=== PATIENT | male | born 1985 | race Caucasian/White ===

== ENCOUNTER 2022-04-12 16:46 | Inpatient (IN) ==
[2022-04-12] MEDS ORDERED: Lactated Ringers 1000 ml BAG 1,000 ML IV ONE ×3 (16:47→18:22)
[2022-04-12] MEDS ORDERED: Metoclopramide 5 MG/ML VIAL (10 mg) IV ONE (16:48)
[2022-04-12 17:34] LABS: Venous Bicarbonate HCO3 15.1 mmol/L (24-28)
[2022-04-12 17:37] LABS: Hematocrit 45 % (42-52); Hemoglobin 14.8 g/dL (14.0-18.0); Mean Corpuscular HGB Conc 33 g/dL (31-36); Mean Corpuscular Hemoglobin 30 pg (27-31); Mean Corpuscular Volume 92 fL (80-94); Mean Platelet Volume 8.2 fL (7.4-10.4); Platelet Count 551 10^3/uL (150-450); Red Blood Count 4.94 10^6 /uL (4.18-5.48); Red Cell Distribution Width 13 % (10-15); White Blood Count 30.3 10^3/uL (3.5-10.8)
[2022-04-12 18:05] LABS: Albumin 4.6 g/dL (3.2-5.2); Albumin/Globulin Ratio 1.5 (1-3); Calcium 9.5 mg/dL (8.6-10.3); Globulin 3.1 g/dL (2-4); Total Bilirubin 0.7 mg/dL (0.2-1.0); Total Protein 7.7 g/dL (6.4-8.9); eGFR CKD-EPI 44.9 (>60)
[2022-04-12] MEDS ORDERED: Insulin Infusion 100unit/100mL 100 UNIT/100 ML BAG IV ONE (18:11)
[2022-04-12] MEDS ORDERED: Dextrose 50% Syringe 50 ml 25 GM/50 ML SYRINGE IV PUSH PRN ×2 (18:11→20:22)
[2022-04-12 18:30] LABS: ABS Basophils 0.1 10^3/ul (0-0.2); ABS Lymphocytes 2.7 10^3/ul (1.0-4.8); ABS Monocytes 1.2 10^3/ul (0-0.8); ABS Neutrophils 26.3 10^3/ul (1.5-7.7)
[2022-04-12] MEDS ORDERED: Droperidol 5 MG/2 ML 2 ML VIAL IV ONE (19:22)
[2022-04-12] MEDS ORDERED: NORMOSOL-R pH 7.4 1000 mL BAG 1,000 ML IV ONE (20:02)
[2022-04-12] MEDS ORDERED: Insulin Infusion 100unit/100mL 100 UNIT/100 ML BAG IV SCH (21:00)
[2022-04-12 21:08] LABS: Urine Appearance Cloudy; Urine Bilirubin Negative (Negative); Urine Blood Negative (Negative); Urine Color Yellow; Urine Glucose 3+(>=500 mg/dL) (Negative); Urine Ketones 2+ (Negative); Urine Nitrite Negative (Negative); Urine Protein Negative (Negative); Urine Specific Gravity 1.015 (1.002-1.030); Urine Urobilinogen Negative (Negative)
[2022-04-12 21:13] LABS: Magnesium 1.9 mg/dL (1.9-2.7); Phosphorus 2.2 mg/dL (2.5-5.0); Potassium 3.9 mmol/L (3.5-5.0)
[2022-04-12 21:28] LABS: TSH Ultra Thyroid Stim Horm 1.14 mcIU/mL (0.34-5.60)
[2022-04-12] MEDS ORDERED: NORMOSOL-R pH 7.4 1000 mL BAG 1,000 ML IV SCH (22:00)
[2022-04-12] MEDS ORDERED: D5W 1/2 NS 1000 ml BAG 1,000 ML IV SCH (22:00)
[2022-04-12 22:07] LABS: High Sensitivity Troponin 1 Hr 22 pg/mL (<20)
[2022-04-13] MEDS: Ondansetron 4 mg VIAL 2 MG/ML 2 ml VIAL IV PRN ×3 (01:04→18:02)
[2022-04-13 01:16] LABS: Calcium 8.6 mg/dL (8.6-10.3); Magnesium 1.8 mg/dL (1.9-2.7); Phosphorus 2.4 mg/dL (2.5-5.0); Potassium 3.5 mmol/L (3.5-5.0); eGFR CKD-EPI 84.6 (>60)
[2022-04-13] MEDS ORDERED: Insulin Infusion 100unit/100mL 100 UNIT/100 ML BAG IV SCH ×2 (04:00→20:00)
[2022-04-13] MEDS ORDERED: Magnesium Sulfate 2 gm BAG 2 GM/50 ML BAG IVPB ONE ×2 (04:01→06:04)
[2022-04-13 04:42] LABS: Hematocrit 35 % (42-52); Hemoglobin 12.3 g/dL (14.0-18.0); Mean Corpuscular HGB Conc 35 g/dL (31-36); Mean Corpuscular Hemoglobin 30 pg (27-31); Mean Corpuscular Volume 86 fL (80-94); Platelet Count 450 10^3/uL (150-450); Red Blood Count 4.09 10^6 /uL (4.18-5.48); Red Cell Distribution Width 13 % (10-15); White Blood Count 24.7 10^3/uL (3.5-10.8)
[2022-04-13 04:45] LABS: ABS Basophils 0.1 10^3/ul (0-0.2); ABS Lymphocytes 2.6 10^3/ul (1.0-4.8); ABS Monocytes 2.3 10^3/ul (0-0.8); ABS Neutrophils 19.6 10^3/ul (1.5-7.7); ABS Nucleated RBC 0.1 10^3/ul; Eosinophil % 0.1 %; Lymphocyte % 10.7 %; Nucleated Red Blood Cells % 0.5
[2022-04-13] MEDS: KCL 20 MEQ/100 ML IVPREMIX 20 MEQ/100 ML BAG IV SCH ×2 (04:47→07:48)
[2022-04-13 04:58] LABS: HDL Cholesterol 30.4 mg/dL
[2022-04-13 04:59] LABS: Calcium 8.6 mg/dL (8.6-10.3); Magnesium 1.8 mg/dL (1.9-2.7); Phosphorus 2.8 mg/dL (2.5-5.0); Potassium 3.4 mmol/L (3.5-5.0); eGFR CKD-EPI 102.5 (>60)
[2022-04-13] MEDS ORDERED: Insulin GLARGINE 100 un/ml 10 ml VIAL SUBCUT SCH ×2 (06:30→22:00)
[2022-04-13] MEDS: Droperidol 5 MG/2 ML 2 ML VIAL IV PRN ×2 (06:35→19:25)
[2022-04-13] MEDS ORDERED: Magnesium Sulfate IV 1GM/100ML 1 GM/100 ML BAG IV ONE (07:20)
[2022-04-13] MEDS ORDERED: KCL 20 MEQ/100 ML IVPREMIX 20 MEQ/100 ML BAG IV SCH ×2 (08:00→09:00)
[2022-04-13 09:04] LABS: Calcium 8.3 mg/dL (8.6-10.3); Phosphorus 2.9 mg/dL (2.5-5.0); Potassium 3.8 mmol/L (3.5-5.0); eGFR CKD-EPI 115.5 (>60)
[2022-04-13] MEDS ORDERED: Insulin GLARGINE 100 un/ml 10 ml VIAL SUBCUT ONE (10:52)
[2022-04-13 13:53] LABS: Calcium 8.3 mg/dL (8.6-10.3); Magnesium 2.3 mg/dL (1.9-2.7); Phosphorus 2.1 mg/dL (2.5-5.0); Potassium 3.8 mmol/L (3.5-5.0); eGFR CKD-EPI 114.3 (>60)
[2022-04-13] MEDS: NORMOSOL-R pH 7.4 1000 mL BAG 1,000 ML IV SCH (14:27)
[2022-04-13 17:32] LABS: Magnesium 2.2 mg/dL (1.9-2.7); Phosphorus 2.4 mg/dL (2.5-5.0); Potassium 3.9 mmol/L (3.5-5.0); eGFR CKD-EPI 118.1 (>60)
[2022-04-13] MEDS ORDERED: Potassium Phosphate IV 15 MMOLE in NS 0.9% 250 ml 250 ML IVPB ONE (18:30)
[2022-04-13] MEDS ORDERED: D5W 1/2 NS 1000 ml BAG 1,000 ML IV SCH (19:00)
[2022-04-13 21:19] LABS: Calcium 8.2 mg/dL (8.6-10.3); Magnesium 2.1 mg/dL (1.9-2.7); Phosphorus 2.3 mg/dL (2.5-5.0); Potassium 3.8 mmol/L (3.5-5.0); eGFR CKD-EPI 117.2 (>60)
[2022-04-13] MEDS ORDERED: Dextrose 50% Syringe 50 ml 25 GM/50 ML SYRINGE IV PUSH PRN (23:25)
[2022-04-14] MEDS: NORMOSOL-R pH 7.4 1000 mL BAG 1,000 ML IV SCH ×2 (00:42→11:29)
[2022-04-14 05:19] LABS: ABS Basophils 0.1 10^3/ul (0-0.2); ABS Lymphocytes 2.2 10^3/ul (1.0-4.8); ABS Monocytes 1.3 10^3/ul (0-0.8); ABS Neutrophils 9.6 10^3/ul (1.5-7.7); Eosinophil % 0.1 %; Hematocrit 33 % (42-52); Hemoglobin 11.1 g/dL (14.0-18.0); Lymphocyte % 16.9 %; Mean Corpuscular HGB Conc 34 g/dL (31-36); Mean Corpuscular Hemoglobin 30 pg (27-31); Mean Corpuscular Volume 90 fL (80-94); Mean Platelet Volume 7.3 fL (7.4-10.4); Platelet Count 341 10^3/uL (150-450); Red Blood Count 3.64 10^6 /uL (4.18-5.48); Red Cell Distribution Width 14 % (10-15); White Blood Count 13.3 10^3/uL (3.5-10.8)
[2022-04-14] MEDS: Ondansetron 4 mg VIAL 2 MG/ML 2 ml VIAL IV PRN ×3 (05:40→21:02)
[2022-04-14 06:17] LABS: eGFR CKD-EPI 131.7 (>60)
[2022-04-14 06:18] LABS: Magnesium 1.9 mg/dL (1.9-2.7)
[2022-04-14] MEDS: Droperidol 5 MG/2 ML 2 ML VIAL IV PRN ×3 (06:55→23:08)
[2022-04-14 07:27] LABS: Calcium 8.4 mg/dL (8.6-10.3)
[2022-04-14] MEDS ORDERED: Dextrose 50% Syringe 50 ml 25 GM/50 ML SYRINGE IV PUSH PRN (07:34)
[2022-04-14 08:38] LABS: Phosphorus 2.7 mg/dL (2.5-5.0)
[2022-04-14] MEDS ORDERED: Insulin GLARGINE 100 un/ml 10 ml VIAL SUBCUT SCH (09:00)
[2022-04-14] MEDS ORDERED: Insulin Infusion 100unit/100mL 100 UNIT/100 ML BAG IV SCH ×2 (10:30→11:00)
[2022-04-14] MEDS ORDERED: D5W 1/2 NS 1000 ml BAG 1,000 ML IV SCH ×2 (12:00→15:51)
[2022-04-14 13:08] LABS: Blood Urea Nitrogen 6 mg/dL (6-24); CO2 Carbon Dioxide 28 mmol/L (22-32); Calcium 8.4 mg/dL (8.6-10.3); Chloride 98 mmol/L (101-111); Glucose 136 mg/dL (70-100); Sodium 135 mmol/L (135-145); eGFR CKD-EPI 124.1 (>60)
[2022-04-14 13:14] LABS: Anion Gap 9 mmol/L (2-11)
[2022-04-14] MEDS ORDERED: Iohexol 300 (CONTRAST) 10 ML SDV IV ONE (14:01)
[2022-04-14 14:15] LABS: Lipase < 10 U/L (11.0-82.0)
[2022-04-14] MEDS ORDERED: Potassium Chlor 20 meq TAB.ER PO ONE (15:27)
[2022-04-14] MEDS: Enoxaparin 40 MG/0.4 ML SYR SUBCUT SCH ×2 (15:36→15:46)
[2022-04-14 17:05] LABS: Potassium 3.5 mmol/L (3.5-5.0)
[2022-04-14 17:06] LABS: Calcium 8.2 mg/dL (8.6-10.3); eGFR CKD-EPI 125.8 (>60)
[2022-04-14] MEDS: D5W 1/2 NS 1000 ml BAG 1,000 ML IV SCH (21:02)
[2022-04-14 22:05] LABS: Calcium 8.8 mg/dL (8.6-10.3); Potassium 3.8 mmol/L (3.5-5.0); eGFR CKD-EPI 127.7 (>60)
[2022-04-15 00:42] LABS: Calcium 8.5 mg/dL (8.6-10.3); Potassium 3.3 mmol/L (3.5-5.0)
[2022-04-15] MEDS ORDERED: Insulin GLARGINE 100 un/ml 10 ml VIAL SUBCUT ONE (02:32)
[2022-04-15] MEDS: Ondansetron 4 mg VIAL 2 MG/ML 2 ml VIAL IV PRN ×3 (03:01→20:54)
[2022-04-15 04:43] LABS: ABS Monocytes 0.8 10^3/ul (0-0.8); ABS Neutrophils 4.8 10^3/ul (1.5-7.7); Eosinophil % 0.5 %; Hematocrit 35 % (42-52); Hemoglobin 11.9 g/dL (14.0-18.0); Lymphocyte % 25.8 %; Mean Corpuscular HGB Conc 34 g/dL (31-36); Mean Corpuscular Hemoglobin 31 pg (27-31); Mean Corpuscular Volume 90 fL (80-94); Mean Platelet Volume 7.3 fL (7.4-10.4); Platelet Count 308 10^3/uL (150-450); Red Blood Count 3.84 10^6 /uL (4.18-5.48); Red Cell Distribution Width 13 % (10-15); White Blood Count 7.6 10^3/uL (3.5-10.8)
[2022-04-15 05:02] LABS: Calcium 8.7 mg/dL (8.6-10.3); Phosphorus 2.1 mg/dL (2.5-5.0); Potassium 3.9 mmol/L (3.5-5.0)
[2022-04-15] MEDS: D5W 1/2 NS 1000 ml BAG 1,000 ML IV SCH (05:02)
[2022-04-15] MEDS ORDERED: Potassium Phosphate IV 30 MMOLE in NS 0.9% 250 ml 250 ML IVPB ONE (08:30)
[2022-04-15] MEDS ORDERED: Dextrose 50% Syringe 50 ml 25 GM/50 ML SYRINGE IV PUSH PRN (13:19)
[2022-04-15] MEDS: Enoxaparin 40 MG/0.4 ML SYR SUBCUT SCH (17:28)
[2022-04-15] MEDS: Pantoprazole VIAL 40 MG VIAL IV SCH (17:31)
[2022-04-15] MEDS ORDERED: Insulin GLARGINE 100 un/ml 10 ml VIAL SUBCUT SCH (21:00)
[2022-04-15] MEDS: Prochlorperazine 5 mg/ml 2 ml VIAL (10 mg) IV PRN (23:30)
[2022-04-16 05:17] LABS: Hematocrit 37 % (42-52); Hemoglobin 12.6 g/dL (14.0-18.0); Mean Corpuscular HGB Conc 34 g/dL (31-36); Mean Corpuscular Hemoglobin 30 pg (27-31); Mean Corpuscular Volume 89 fL (80-94); Mean Platelet Volume 7.3 fL (7.4-10.4); Platelet Count 333 10^3/uL (150-450); Red Blood Count 4.17 10^6 /uL (4.18-5.48); Red Cell Distribution Width 13 % (10-15); White Blood Count 7.6 10^3/uL (3.5-10.8)
[2022-04-16 05:51] LABS: Calcium 9.3 mg/dL (8.6-10.3); Magnesium 1.7 mg/dL (1.9-2.7); Phosphorus 3.5 mg/dL (2.5-5.0); Potassium 3.9 mmol/L (3.5-5.0); eGFR CKD-EPI 123.5 (>60)
[2022-04-16 06:33] LABS: ABS Eosinophils 0.1 10^3/ul (0-0.6); ABS Lymphocytes 2.5 10^3/ul (1.0-4.8); ABS Monocytes 0.8 10^3/ul (0-0.8); ABS Neutrophils 4.1 10^3/ul (1.5-7.7); Eosinophil % 1.4 %; Lymphocyte % 33.5 %; Nucleated Red Blood Cells % 0.2
[2022-04-16] MEDS: Prochlorperazine 5 mg/ml 2 ml VIAL (10 mg) IV PRN ×2 (07:53→16:43)
[2022-04-16] MEDS ORDERED: Insulin GLARGINE 100 un/ml 10 ml VIAL SUBCUT SCH (09:00)
[2022-04-16] MEDS ORDERED: Famotidine IV 10 MG/ML 2 ml VIAL (20 mg) IV SLOW PU ONE (09:44)
[2022-04-16] MEDS: Pantoprazole VIAL 40 MG VIAL IV SCH (10:32)
[2022-04-16 15:37] VITALS: BP 147/95
[2022-04-16] MEDS: Enoxaparin 40 MG/0.4 ML SYR SUBCUT SCH (16:48)
== END 2022-04-16 20:15 | DRG 420 ==
LOC: ED 16:46 → ICU 22:21 → SUATTDRO 22:21 → ICU 22:30 → SSU 04-15 14:37
PROVIDERS: ADMIT Internal Medicine; ATTEND Hospitalist